=== PATIENT | male | born 1945 | race American Indian/Alaskan Native ===

== ENCOUNTER 2018-09-03 15:57 | Emergency (ER) | payer MEDICARE, OTHER ==
[~2018-09-03] VITALS: Ht 175.3 cm; Wt 84.4 kg
[~2018-09-03 15:57] MED LIST: HYDROCODON-ACE1 EAC7 PO; NEURONTIN 400400 M1 PO
[2018-09-03] MEDS ORDERED: DIABETES MEDICATION (16:15)
[2018-09-03] MEDS ORDERED: ASPIR 8181 MG PO (16:15)
[2018-09-03 17:56] VITALS: BP 175/85
[2018-09-04] MEDS ORDERED: NORCO 5-325 TA1 EACH PO (08:56)
== END 2018-09-03 17:57 | disposition home or self-care (01) ==
LOC: M.ERS 15:57
DX: R04.0 Epistaxis (principal); E11.9 Type 2 diabetes mellitus without complications; I10 Essential (primary) hypertension; Z85.46 Personal history of malignant neoplasm of prostate

== ENCOUNTER 2018-09-04 08:36 | Emergency (ER) | payer MEDICARE, OTHER ==
[~2018-09-04] VITALS: Ht 175.3 cm; Wt 83.0 kg
[~2018-09-04 08:36] MED LIST changes: +ASPIR 8181 MG PO; +DIABETES MEDICATION
[2018-09-04 08:45] VITALS: BP 179/101
[2018-09-04] MEDS ORDERED: NORCO 5-325 TA1 EACH PO (08:56)
== END 2018-09-04 09:03 | disposition home or self-care (01) ==
LOC: M.ERS 08:36
DX: Z48.01 Encounter for change or removal of surgical wound dressing (principal); E11.9 Type 2 diabetes mellitus without complications; I10 Essential (primary) hypertension; Z85.46 Personal history of malignant neoplasm of prostate